=== PATIENT | female | born 1970 | race Caucasian/White ===

== ENCOUNTER 2018-07-31 19:15 | Emergency (ER) | payer BC ==
[~2018-07-31] VITALS: Ht 165.1 cm; Wt 81.6 kg
[~2018-07-31 19:15] MED LIST: BP PILL; CLARITIN10 MG PO; HYDR25T PO; METHYLDOPA250 MG PO; MOTRIN800 MG PO; NORCO 325 MG-7.1 TAB PO; ROBAXIN750 MG PO; VICODIN 5/500 505 MG PO; ZANTAC; [UNRECOGNIZED DRUG - REMARK]
[2018-07-31] MEDS ORDERED: Motrin,Rufen800 MG PO (21:19)
== END 2018-07-31 21:30 | disposition home or self-care (01) ==
LOC: ED 19:15
DX: S01.81XA Laceration without foreign body of other part of head, initial encounter (principal); S60.811A Abrasion of right wrist, initial encounter; Z88.5 Allergy status to narcotic agent; Z79.899 Other long term (current) drug therapy; W18.09XA Striking against other object with subsequent fall, initial encounter; Y93.89 Activity, other specified; Y92.89 Other specified places as the place of occurrence of the external cause; Y99.8 Other external cause status

== ENCOUNTER 2022-03-17 08:29 | Inpatient (IN) | payer SELFPAY ==
[~2022-03-17] VITALS: Ht 167.6 cm; Wt 77.6 kg
[~2022-03-17 08:29] MED LIST changes: +Motrin,Rufen800 MG PO
[2022-03-17 08:42] VITALS: BP 108/61
[2022-03-17 09:04] LABS: BILIRUBIN Negative (Negative); BLOOD Negative (Negative); CLARITY Turbid (Clear); COLOR Dark Yellow (Yellow); GLUCOSE Negative (Negative); KETONE Trace (Negative); LEUKO ESTERASE 2+ (Negative); NITRITE Negative (Negative)
[2022-03-17 09:06] LABS: BASO # 0.1 10*3/uL (0.0-0.1); BASO % 0.4 % (0.0-1.0); EOS # 0.1 10*3/uL (0.0-0.4); EOS % 0.6 % (1.0-4.0); HEMATOCRIT 36.8 % (37.0-47.0); LYMPH # 0.9 10*3/uL (1.3-4.4); LYMPH % 6.2 % (27.0-41.0); MEAN CELL VOLUME 94.8 fl (81.0-99.0); MEAN CORPUSCULAR HGB 33.2 pg (27.0-31.0); MEAN CORPUSCULAR HGB CONC 35.1 g/dl (33.0-37.0); MEAN PLATELET VOLUME 8.3 fl (9.6-12.3); MONO # 1.2 10*3/uL (0.1-1.0); MONO % 8.5 % (3.0-9.0); NEUT # 11.9 10*3/uL (2.3-7.9); NEUT % 83.7 % (47.0-73.0); PLATELET COUNT AUTOMATED 300 10*3/uL (130-400); RED BLOOD COUNT 3.88 10*6/uL (4.10-5.10); RED CELL DISTRI WIDTH 11.7 % (0-14.5); WHITE BLOOD COUNT 14.2 10*3/uL (4.8-10.8)
[2022-03-17 09:19] LABS: BACTERIA 4+; WBC TNTC wbc/hpf (0-5)
[2022-03-17 09:21] LABS: RBC 0-2 rbc/hpf (0-2)
[2022-03-17 09:29] LABS: CREATININE 1.24 mg/dL (0.55-1.02); POTASSIUM 3.1 mmol/L (3.5-5.1); TOTAL PROTEIN 7.6 gm/dL (6.4-8.2)
[2022-03-17 10:45] VITALS: BP 121/66
[2022-03-17] MEDS ORDERED: PROTONIX40 MG PO (11:16)
[2022-03-17] MEDS ORDERED: PROCARDIA XL30 MG PO (11:16)
[2022-03-17] MEDS ORDERED: VALSARTAN-HCTZ1 EACH PO (11:17)
[2022-03-17 16:00] VITALS: BP 109/60
[2022-03-17 20:00] VITALS: BP 97/60
[2022-03-18] VITALS: BP 114/65
[2022-03-18 05:55] LABS: BUN 9 mg/dl (7-24); CHLORIDE 103 mmol/L (98-107); POTASSIUM 3.3 mmol/L (3.5-5.1); SODIUM 136 mmol/L (136-145)
[2022-03-18 05:58] LABS: ALKALINE PHOSPHATASE 100 U/L (45-117); CREATININE 0.58 mg/dL (0.55-1.02); SGOT/AST 13 IU/L (3-35); SGPT/ALT 15 U/L (12-78); TOTAL PROTEIN 6.8 gm/dL (6.4-8.2)
[2022-03-18 07:08] LABS: BASO % 0.3 % (0.0-1.0); EOS % 0.2 % (1.0-4.0); HEMATOCRIT 34.3 % (37.0-47.0); LYMPH # 1.4 10*3/uL (1.3-4.4); LYMPH % 12.3 % (27.0-41.0); MEAN CELL VOLUME 95.3 fl (81.0-99.0); MEAN CORPUSCULAR HGB 33.3 pg (27.0-31.0); MEAN PLATELET VOLUME 8.9 fl (9.6-12.3); MONO # 1.4 10*3/uL (0.1-1.0); MONO % 12.5 % (3.0-9.0); NEUT # 8.6 10*3/uL (2.3-7.9); NEUT % 74.2 % (47.0-73.0); PLATELET COUNT AUTOMATED 333 10*3/uL (130-400); RED CELL DISTRI WIDTH 11.9 % (0-14.5); WHITE BLOOD COUNT 11.6 10*3/uL (4.8-10.8)
[2022-03-18 08:00] VITALS: BP 116/64
[2022-03-18 11:33] VITALS: BP 103/58
[2022-03-18 16:00] VITALS: BP 119/70
[2022-03-18 20:00] VITALS: BP 135/80
[2022-03-19] VITALS: BP 137/77
[2022-03-19 06:30] LABS: BASO # 0.1 10*3/uL (0.0-0.1); BASO % 0.7 % (0.0-1.0); EOS # 0.1 10*3/uL (0.0-0.4); EOS % 0.8 % (1.0-4.0); HEMATOCRIT 33.9 % (37.0-47.0); LYMPH # 1.7 10*3/uL (1.3-4.4); LYMPH % 18.8 % (27.0-41.0); MEAN CELL VOLUME 95.8 fl (81.0-99.0); MEAN CORPUSCULAR HGB 32.5 pg (27.0-31.0); MEAN CORPUSCULAR HGB CONC 33.9 g/dl (33.0-37.0); MEAN PLATELET VOLUME 8.3 fl (9.6-12.3); MONO # 0.8 10*3/uL (0.1-1.0); MONO % 9.1 % (3.0-9.0); NEUT # 6.3 10*3/uL (2.3-7.9); PLATELET COUNT AUTOMATED 409 10*3/uL (130-400); RED BLOOD COUNT 3.54 10*6/uL (4.10-5.10); RED CELL DISTRI WIDTH 12.2 % (0-14.5)
[2022-03-19 06:42] LABS: BUN 5 mg/dl (7-24); CHLORIDE 105 mmol/L (98-107); CREATININE 0.49 mg/dL (0.55-1.02); POTASSIUM 3.6 mmol/L (3.5-5.1); SODIUM 136 mmol/L (136-145)
[2022-03-19 08:00] VITALS: BP 133/77
[2022-03-19] MEDS ORDERED: MACROBID100 M1 PO (12:05)
== END 2022-03-19 12:49 | disposition home or self-care (01) | DRG 871 ==
LOC: ED 08:29 → EDHOLD 10:18 → 4E 10:18
PROVIDERS: Family Medicine; Internal Medicine; Student in an Organized Health Care Education/Training Program; ADMIT Emergency Medicine; ATTEND Emergency Medicine
DX: A41.9 Sepsis, unspecified organism (principal); N17.0 Acute kidney failure with tubular necrosis; E87.1 Hypo-osmolality and hyponatremia; N30.00 Acute cystitis without hematuria; E44.0 Moderate protein-calorie malnutrition; R65.20 Severe sepsis without septic shock; I10 Essential (primary) hypertension; K21.9 Gastro-esophageal reflux disease without esophagitis; E87.8 Other disorders of electrolyte and fluid balance, not elsewhere classified; R73.9 Hyperglycemia, unspecified; F10.10 Alcohol abuse, uncomplicated; D64.9 Anemia, unspecified; E83.41 Hypermagnesemia; D75.839 Thrombocytosis, unspecified; E83.39 Other disorders of phosphorus metabolism; Z88.6 Allergy status to analgesic agent; Z82.49 Family history of ischemic heart disease and other diseases of the circulatory system; Z68.27 Body mass index [BMI] 27.0-27.9, adult